=== PATIENT | male | born 1975 | race Caucasian/White ===

== ENCOUNTER 2016-05-25 15:04 | Emergency (ER) | payer MEDICAID, OTHER, SELFPAY ==
[~2016-05-25] VITALS: Ht 182.9 cm; Wt 80.0 kg
[2016-05-25 15:13] VITALS: BP 126/73
== END 2016-05-25 15:57 | disposition home or self-care (01) ==
LOC: ED 15:48
DX: K02.9 Dental caries, unspecified (principal); K03.81 Cracked tooth
CPT/HCPCS: 99283